=== PATIENT | male | born 1960 | race Two or more races ===

== ENCOUNTER 2018-07-01 05:49 | Day surgery (SDC) | payer OTHER ==
[2018-06-28 09:03] LABS: ALANINE AMINOTRANSFERASE 29 U/L (12-78); ALBUMIN 3.6 g/dL (3.4-5.0); ANION GAP 8 mmol/L (5-15); CALCIUM 8.1 mg/dL (8.5-10.1); CHLORIDE 105 mmol/L (98-107)
[2018-06-28 09:06] LABS: ALKALINE PHOSPHATASE 76 U/L (45-117); BILIRUBIN,TOTAL 0.5 mg/dL (0.2-1.0); TOTAL PROTEIN 7.2 g/dL (6.4-8.2)
[~2018-07-01] VITALS: Ht 167.6 cm; Wt 85.2 kg
[~2018-07-01 05:49] MED LIST: CHOL200024 PO; GLYB5TAB3 PO; LEVO100T5 PO; LISI-170 PO; METF850T2 PO
[2018-07-01 06:34] VITALS: BP 123/78
[2018-07-01] MEDS ORDERED: LACTATED RINGERS 1,000 ML IV SCH (06:36)
[2018-07-01] MEDS ORDERED: BUPIVACAINE/PF-EPI 0.5% 1:200K ONE (07:01)
[2018-07-01] MEDS ORDERED: MIDAZOLAM 1 MG/ML, 2ML ONE (07:22)
[2018-07-01] MEDS ORDERED: FENTANYL PF 100 MCG/2ML ONE ×2 (07:22→09:49)
[2018-07-01] MEDS ORDERED: LIDOCAINE GEL 2%, 5ML ONE (07:25)
[2018-07-01] MEDS ORDERED: ONDANSETRON 2MG/ML, 2ML IV PRN (07:30)
[2018-07-01] MEDS ORDERED: ACETAMINOPHEN 500 MG TABLET PO ONE (07:30)
[2018-07-01] MEDS ORDERED: HYDROmorphone 1 MG/ML, 1ML IV PRN (07:30)
[2018-07-01] MEDS ORDERED: OXYcodone 5 MG/5 ML ORAL.SOL UDC PO PRN (07:30)
[2018-07-01] MEDS ORDERED: LABETALOL 5MG/ML, 20ML IV PRN (07:30)
[2018-07-01] MEDS ORDERED: GABAPENTIN 300 MG CAPSULE PO ONE (07:30)
[2018-07-01] MEDS ORDERED: PROMETHAZINE 25 MG/ML, 1ML IV PRN (07:30)
[2018-07-01] MEDS ORDERED: MIDAZOLAM 1 MG/ML, 2ML IV PRN (07:30)
[2018-07-01] MEDS ORDERED: ALBUTEROL/IPRATROPIUM 2.5MG/0.5MG, 3 ML NPPB PRN (07:30)
[2018-07-01] MEDS ORDERED: SCOPOLAMINE PATCH, 1.5MG PATCH.TD72 TD PRN (07:30)
[2018-07-01] MEDS ORDERED: DEXAMETHASONE 4 MG/ML, 1ML ONE (08:01)
[2018-07-01] MEDS ORDERED: NEOSTIGMINE 1 MG/ML, 10ML ONE (08:01)
[2018-07-01] MEDS ORDERED: PROPOFOL 10 MG/ML, 20ML ONE (08:01)
[2018-07-01] MEDS ORDERED: KETOROLAC 30 MG/1 ML ONE (08:01)
[2018-07-01] MEDS ORDERED: CEFAZOLIN 1,000 MG ONE (08:01)
[2018-07-01] MEDS ORDERED: ONDANSETRON 2MG/ML, 2ML ONE (08:01)
[2018-07-01] MEDS ORDERED: SUCCINYLCHOLINE 20 MG/ML, 10ML ONE (08:01)
[2018-07-01] MEDS ORDERED: ROCURONIUM 10MG/ML,5ML ONE (08:01)
[2018-07-01] MEDS ORDERED: GLYCOPYRROLATE 0.2MG/1ML, 5ML ONE (08:01)
[2018-07-01] MEDS: FENTANYL PF 100 MCG/2ML IV PRN ×2 (09:45→09:51)
[2018-07-01] MEDS ORDERED: OXYcodone 5 MG/5 ML ORAL.SOL UDC ONE (09:46)
== END 2018-07-01 14:15 ==
LOC: OUT 05:49 → MERGE 09:30 → OUT 14:15
PROVIDERS: ATTEND Colon & Rectal Surgery
DX: K40.90 Unilateral inguinal hernia, without obstruction or gangrene, not specified as recurrent (principal); E11.9 Type 2 diabetes mellitus without complications; E03.9 Hypothyroidism, unspecified; I10 Essential (primary) hypertension
CPT/HCPCS: 36415; 49650; 80053; 82962; 88302; 93005; C1781; J0330; J0690; J1100; J1885; J2250; J2405; J2704; J2710; J3010; J3490; J7120; S2900